=== PATIENT | female | born 1995 | race Caucasian/White ===

== ENCOUNTER 2016-12-15 07:17 | Inpatient (IN) | payer OTHER ==
[2016-12-15 08:27] VITALS: BMI 25.9
[2016-12-15 09:32] LABS: BASOPHIL 0.4 % (0-2.0); EOSINOPHIL 0.9 % (0-4.5); MCH 29.5 pg (25.7-33.7); MEAN PLT VOLUME 9.9 fl (7.5-11.1); NEUTROPHILS 71.8 % (42.8-82.8); PLATELET COUNT 127 K/MM3 (134-434); RDW 12.9 % (11.6-15.6); WHITE BLOOD COUNT 6.8 K/mm3 (4.0-10.0)
[2016-12-15 09:52] LABS: INR 0.98 (0.82-1.09); PROTHROMBIN TIME (PATIENT) 10.8 SEC (9.98-11.88)
[2016-12-15 09:55] LABS: ACTIVATED PTT 22.6 SECONDS (26.9-34.4)
[2016-12-15 10:02] LABS: ANION GAP 11 (8-16); CALCIUM 8.5 mg/dL (8.5-10.1); CO2 22 mmol/L (21-32); CREATININE 0.5 mg/dL (0.55-1.02); GLUCOSE,RANDOM 128 mg/dL (74-106)
[2016-12-15] MEDS ORDERED: DINOPROSTONE 10 MG VAGINAL SUPPOSITORY VG ONE ×2 (10:30→10:40)
--- NOTE | 2016-12-15 10:33 | HP ---
Past Medical History - Admission Chief Complaint: Vaginal discharge History of Present Illness: 21 yo , @ 40.3 weeks gestation, EDC 12/12/16, presents c/o vaginal discharge. She was scheduled for induction of labor due to postdates; she was then admitted to L&D. She denies any contractions pain History Source: Patient Limitations to Obtaining History: No Limitations - Past Medical History ...: 2 ...Para: 0 ...Term: 0 ...: 0 ...Spon : 0 ...Induced : 1 ...Multiple Gestation: 0 ...LMP: 03/08/16 ... Weeks Gestation by Dates: 40.2 ...EDC by Dates: 12/13/16 ...EDC by Sono: 12/13/16 - Past Surgical History Past Surgical History: Yes: None Hx Myomectomy: No Hx Transabdominal Cerclage: No - Smoking History Smoking history: Never smoked Have you smoked in the past 12 months: No Aproximately how many cigarettes per day: 0 - Alcohol/Substance Use Hx Alcohol Use: No - Social History Usual Living Arrangement: Yes: Alone History of Recent Travel: No Home Medications - Allergies Allergies/Adverse Reactions: Allergies Allergy/AdvReac Type Severity Reaction Status Date / Time No Known Allergies Allergy Verified 12/15/16 07:47 - Home Medications Home Medications: Ambulatory Orders Vit No.130/Iron/FA [ Vitamins] 1 each PO DAILY 09/26/16 Review of Systems - Review of Systems Constitutional: reports: No Symptoms Eyes: reports: No Symptoms HENT: reports: No Symptoms Neck: reports: No Symptoms Cardiovascular: reports: No Symptoms Respiratory: reports: No Symptoms Gastrointestinal: reports: No Symptoms Genitourinary: reports: Other (Leakage of fluid) Breasts: reports: No Symptoms Reported Musculoskeletal: reports: No Symptoms Integumentary: reports: No Symptoms Neurological: reports: No Symptoms Endocrine: reports: No Symptoms Hematology/Lymphatic: reports: No Symptoms Psychiatric: reports: No Symptoms Pain Intensity: 0 Physical Exam - Maternity Vital Signs: Vital Signs Temperature 98.6 F 12/15/16 10:00 Pulse Rate 94 H 12/15/16 10:00 Respiratory Rate 20 12/15/16 10:00 Blood Pressure 100/53 12/15/16 10:00 O2 Sat by Pulse Oximetry (%) Constitutional: Yes: Well Nourished Eyes: Yes: Conjunctiva Clear HENT: Yes: Atraumatic Neck: Yes: Supple Cardiovascular: Yes: Regular Rate and Rhythm Lungs: Clear to auscultation - Abdominal Exam/OB Number of Fetuses: Single Presentation: Vertex - Vaginal Exam/OB Vaginal Bleediing: No Speculum Exam: No Dilatation (cm): 0 Effacement (%): 60 Amniotic Membrane Status: Leaking Amniotic Fluid: Yes: Clear Presentation: Vertex/Position Station: -2 - Physical Exam ...Motor Strength: WNL Psychiatric: Yes: Alert, Oriented - Labs Lab Results: CBC, BMP 12/15/16 09:05 12/15/16 09:05 Problem List - Problems (1) Post-dates Code(s): O48.0 - POST-TERM Assessment/Plan Postdates Admit for Cervidil induction Cervidil placed at 10:30 am Re-evaluate in 12 hours or before if indicated
[2016-12-15] MEDS ORDERED: CITRIC ACID/SODIUM CITRATE 30 ML UNIT-DOSE CUP PO ONE (19:25)
--- NOTE | 2016-12-15 20:07 | PN ---
Progress Note (short form) - Note Progress Note: prom since 230 am today, cervidil induction, cx closed 25 vx -3 mr clear efw 8 to 9 lb fhr cat 1, advised c/s, rba discussed
[2016-12-15] MEDS ORDERED: ELECTROLYTE-148 SOLN 500 ML IV SCH (21:00)
[2016-12-15] MEDS ORDERED: ELECTROLYTE-148 SOLN 1,000 ML IV SCH (22:00)
[2016-12-15] MEDS: OXYTOCIN 20 UNITS in 0.9% NS 1,000 ML IV SCH (23:00)
[2016-12-15] MEDS: METHYLERGONOVINE MALEATE 0.2 MG/1 ML AMP IM PRN (23:00)
[2016-12-15] MEDS ORDERED: BENZOCAINE 28 GM HEMORRHOIDAL OINTMENT PR PRN (23:19)
[2016-12-15] MEDS ORDERED: oxyCODONE HCL 5 MG TABLET PO PRN (23:19)
[2016-12-15] MEDS ORDERED: BENZOCAINE 20% 57 GM BOTTLE TP PRN (23:19)
[2016-12-15] MEDS ORDERED: diphenhydrAMINE HCL 25 MG CAPSULE (FP) PO PRN (23:19)
[2016-12-15] MEDS ORDERED: WITCH HAZEL 50% (TUCKS) 40 PAD/JAR PAD TP PRN (23:19)
[2016-12-15] MEDS ORDERED: IBUPROFEN 600 MG TABLET (FP) PO PRN (23:19)
[2016-12-15] MEDS ORDERED: DEXTROSE 5%-LACTATED RINGERS 1,000 ML IV SCH (23:30)
[2016-12-16] MEDS ORDERED: DEXTROSE 5%-WATER - 50 ML IVPB ONE ×2 (01:38→09:44)
[2016-12-16] MEDS ORDERED: ceFAZolin SODIUM 1 GM VIAL ONE ×2 (01:38→09:44)
[2016-12-16] MEDS: CEFAZOLIN 1 GM in DEXTROSE 5%-WATER - 50 ML IVPB SCH ×2 (01:46→09:51)
[2016-12-16] MEDS: METHYLERGONOVINE MALEATE 0.2 MG/1 ML AMP IM PRN (03:03)
[2016-12-16] MEDS: IBUPROFEN 800 MG/8 ML IJ IVPB PRN ×2 (03:10→11:25)
[2016-12-16] MEDS: OXYTOCIN 20 UNITS in 0.9% NS 1,000 ML IV SCH (06:12)
--- NOTE | 2016-12-16 07:20 | PN ---
Progress Note (short form) - Note Progress Note: pod 1 doing well, no excess vaginal bleeding, abdomen soft, no distension, no cva incision dry, clean no calf tenderness plan ambulate, advance diet. cbc , pain management
[2016-12-16 07:27] LABS: BASOPHIL 0.4 % (0-2.0); MCH 29.9 pg (25.7-33.7); MCHC 34.4 g/dl (32.0-36.0); MEAN CELL VOLUME 86.8 fl (80-96); MEAN PLT VOLUME 10.1 fl (7.5-11.1); PLATELET COUNT 119 K/MM3 (134-434); RDW 12.6 % (11.6-15.6); WHITE BLOOD COUNT 9.7 K/mm3 (4.0-10.0)
[2016-12-16] MEDS: PRENATAL VITAMINS W/ FOLIC ACID TABLET (FP) PO SCH (09:51)
[2016-12-16] MEDS: SIMETHICONE 80 MG TAB.CHEW (FP) PO PRN ×2 (09:51→17:27)
[2016-12-16] MEDS: ENOXAPARIN NA (PORCINE) 40 MG/0.4 ML DISP.SYRIN SQ SCH (09:52)
--- NOTE | 2016-12-16 13:42 | PN ---
Progress Note (short form) - Note Progress Note: POD #1 - s/p under spinal anesthesia with duramorph. Pt. doing well, sitting up comfortably in bed with baby. Pt. c/o some pruritis which was relieved with Benadryl. Good pain control. No apparent anesthetic complications noted. Continue current care.
[2016-12-16] MEDS: ACETAMINOPHEN 325 MG TABLET (FP) PO PRN (17:25)
[2016-12-16] MEDS: IBUPROFEN 600 MG TABLET (FP) PO PRN (17:26)
[2016-12-16] MEDS ORDERED: BISACODYL 10 MG SUPP.RECT RC PRN (23:19)
[2016-12-17] MEDS: SIMETHICONE 80 MG TAB.CHEW (FP) PO PRN ×3 (00:16→17:38)
[2016-12-17] MEDS: IBUPROFEN 600 MG TABLET (FP) PO PRN ×3 (00:17→17:38)
[2016-12-17] MEDS: ACETAMINOPHEN 325 MG TABLET (FP) PO PRN ×3 (00:17→17:38)
--- NOTE | 2016-12-17 08:57 | PN ---
Post Progress Note - Subjective Subjective: 21 yo Para 1, status post primary , seen and evaluated. Doing well, no complaints. Post Day: 2 Type of Delivery: Primary C/S Vital Signs: Vital Signs Temperature 97.8 F 12/16/16 21:35 Pulse Rate 73 12/16/16 21:35 Respiratory Rate 20 12/16/16 21:35 Blood Pressure 103/67 12/16/16 21:35 O2 Sat by Pulse Oximetry (%) 100 12/15/16 22:45 Breast Exam: Yes: Soft Uterus: Yes: Fundus Firm Incision: Yes: [place] intact Abdomen/GI: Yes: Abdomen soft, Tolerating PO Lochia: Yes: Rubra Lochia, amount: Small Extremities: Yes: Calves non-tender Perineum: Yes: Intact Activity: Ambulating - Labs Labs: CBC WBC 9.7 K/mm3 (4.0-10.0) D 12/16/16 06:00 RBC 3.65 M/mm3 (3.60-5.2) 12/16/16 06:00 Hgb 10.9 GM/dL (10.7-15.3) 12/16/16 06:00 Hct 31.7 % (32.4-45.2) L 12/16/16 06:00 MCV 86.8 fl (80-96) 12/16/16 06:00 MCH 29.9 pg (25.7-33.7) 12/16/16 06:00 MCHC 34.4 g/dl (32.0-36.0) 12/16/16 06:00 RDW 12.6 % (11.6-15.6) 12/16/16 06:00 Plt Count 119 K/MM3 (134-434) L 12/16/16 06:00 MPV 10.1 fl (7.5-11.1) 12/16/16 06:00 Neutrophils % 77.0 % (42.8-82.8) 12/16/16 06:00 Lymphocytes % 13.5 % (8-40) D 12/16/16 06:00 Monocytes % 9.1 % (3.8-10.2) 12/16/16 06:00 Eosinophils % 0.0 % (0-4.5) D 12/16/16 06:00 Basophils % 0.4 % (0-2.0) 12/16/16 06:00 Problem List - Problems (1) Post-dates Code(s): O48.0 - POST-TERM (2) Status post primary low transverse section Code(s): Z98.891 - HISTORY OF UTERINE SCAR FROM PREVIOUS SURGERY Assessment/Plan Status post primary Stable Continue routine Post op care
[2016-12-17] MEDS: PRENATAL VITAMINS W/ FOLIC ACID TABLET (FP) PO SCH (09:46)
[2016-12-17] MEDS: ENOXAPARIN NA (PORCINE) 40 MG/0.4 ML DISP.SYRIN SQ SCH (09:46)
[2016-12-17] MEDS ORDERED: SENNOSIDES/DOCUSATE COMBO (SENNA PLUS) TABLET (UD) PO PRN (22:00)
[2016-12-18] MEDS: oxyCODONE HCL 5 MG TABLET PO PRN ×2 (00:05→09:38)
[2016-12-18 08:22] VITALS: BP 127/71; PULSE 70; TEMP 98.8
[2016-12-18 08:42] LABS: BASOPHIL 0.8 % (0-2.0); EOSINOPHIL 2.6 % (0-4.5); MCH 29.8 pg (25.7-33.7); MCHC 34.3 g/dl (32.0-36.0); MEAN CELL VOLUME 87.1 fl (80-96); NEUTROPHILS 60.5 % (42.8-82.8); PLATELET COUNT 150 K/MM3 (134-434); WHITE BLOOD COUNT 6.8 K/mm3 (4.0-10.0)
[2016-12-18] MEDS: ACETAMINOPHEN 325 MG TABLET (FP) PO PRN (09:34)
[2016-12-18] MEDS: ENOXAPARIN NA (PORCINE) 40 MG/0.4 ML DISP.SYRIN SQ SCH (09:34)
[2016-12-18] MEDS: SIMETHICONE 80 MG TAB.CHEW (FP) PO PRN (09:34)
[2016-12-18] MEDS: PRENATAL VITAMINS W/ FOLIC ACID TABLET (FP) PO SCH (09:34)
[2016-12-18] MEDS: IBUPROFEN 600 MG TABLET (FP) PO PRN (09:35)
--- NOTE | 2016-12-18 11:17 | DS ---
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: Vital Signs Temperature 98.8 F 12/18/16 08:21 Pulse Rate 70 12/18/16 08:21 Respiratory Rate 20 12/18/16 08:21 Blood Pressure 127/71 12/18/16 08:21 O2 Sat by Pulse Oximetry (%) 99 12/17/16 21:00 Constitutional: Yes: Well Nourished Eyes: Yes: Conjunctiva Clear HENT: Yes: Atraumatic Neck: Yes: Supple Cardiovascular: Yes: Regular Rate and Rhythm Respiratory: Yes: Regular, CTA Bilaterally Gastrointestinal: Yes: Normal Bowel Sounds Pelvis: Yes: WNL External Genitalia: Yes: Normal Vaginal Exam: Yes: Normal Cervix: Yes: Normal Uterus: Yes: Normal ....Post : Yes: Uterus firm Wound/Incision: Yes: Well Approximated. No: Bleeding Neurological: Yes: Alert, Oriented ...Motor Strength: WNL Psychiatric: Yes: Alert, Oriented Labs: CBC, BMP 12/18/16 08:17 12/15/16 09:05 Delivery - Delivery Type of Anesthesia: Spinal Episiotomy/Laceration: None EBL (cc): 500 Delivery, Single - Stages of Labor Date 1st Stage Initiatied: 12/15/16 Time 1st Stage Initiated: 02:00 Date of Delivery: 12/15/16 Time of Delivery: 21:00 Time Placenta Delivered: 21:01 - Condition of Infant Customer Service Correspondence Clerk/Ballet Master/Mistress Present: No Gender: Female Weight: 8 lb 15 oz Position: Right, OT Total Hours ROM (Hrs/Mins): 19h01m - 1 Minute Total Score: 9 5 Minutes Total Score: 9 - [place] Feeding Plan Initial Plan: Exclusive throughout hospitalization Discharge Summary Reason For Visit: INDUCTION OF LABOR Current Active Problems Post-dates (Acute) Status post primary low transverse section (Acute) Procedures: Principal: Primary Low Transverse Hospital Course: Routine Post op care Condition: Good - Instructions Diet, Activity, Other Instructions: return to clinic for quang removal on 12/22/16. call [facility] for appointment. [phone]. Disposition: HOME - Home Medications Comprehensive Discharge Medication List: Ambulatory Orders Vit No.130/Iron/FA [ Vitamins] 1 each PO DAILY 09/26/16
--- NOTE | 2016-12-21 09:53 | OP ---
DATE OF OPERATION: 12/15/2016 PREOPERATIVE DIAGNOSIS: , post-date, premature ruptured membranes, Cervidil induction, failure to dilate, large for gestational age. POSTOPERATIVE DIAGNOSIS: , post-date, premature ruptured membranes, Cervidil induction, failure to dilate, large for gestational age. PROCEDURE: Primary low segment transverse section. SURGEON: Shailesh Bell MD TRACTOR MECHANIC HELPER: JOSE Irene ANESTHESIA: Spinal. ESTIMATED BLOOD LOSS: 500 mL. OPERATION: The patient was taken to the operating room. Under adequate spinal anesthesia, abdomen and perineum were prepped and draped. Pfannenstiel abdominal skin incision was made. Abdominal wall was cut layer by layer, until the peritoneum was exposed and incised. Upon entering the abdominal cavity, lower uterine segment was identified, and uterovesical fold of peritoneum was established, bladder was pushed down. Then, a low transverse uterine incision was made. Incision extended laterally. Amniotic sac was entered. Clear fluid, head delivered, nasopharynx was suctioned, and live baby was delivered without any difficulty. Placenta was delivered manually. Uterine cavity was cleaned of all remaining tissue. Uterine incision was closed in 2 layers, 1st layer with 0 Biosyn continuous suture, the 2nd layer with 0 Biosyn imbricating the 1st layer. Bladder flap was closed with 0 Biosyn continuous suture. Both tubes and ovaries were checked, were normal. No active bleeding was seen. All the lap count, sponge count, instrument count were correct. Then, peritoneum was closed with 0 Biosyn continuous suture, muscles were brought together with interrupted sutures of 0 Biosyn, fascia was closed with 0 Biosyn continuous suture, subcutaneous fat with interrupted suture of 0 Biosyn, and the skin was closed with quang. The patient tolerated the procedure well, left the OR in good condition. [place] [id number]
--- NOTE | 2016-12-23 15:49 | PATH ---
Surgical Pathology Report Patient Name: JORGE L EGAN Med. Rec. 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 Specimen(s) Received PLACENTA Clinical History , 40.2 weeks Microsomia for primary c/section Final Diagnosis PLACENTA, DELIVERY: FOCALLY DISRUPTED THIRD TRIMESTER PLACENTA WITH MILD PREVILLOUS, PERIVILLOUS, AND PRECHORIONIC FIBRIN DEPOSITION, EXTENSIVE CALCIFICATIONS, THREE VESSEL UMBILICAL CORD, AND PLACENTAL MEMBRANES WITH FOCAL HEMORRHAGE. Electronically Signed Froy Alejo M.D. Gross Description The specimen is received fresh, labeled "placenta" and is a 629 gram, 18.5 x 15.0 x 3.5 cm placenta with attached membranes and umbilical cord. The attached membranes are stauffer, translucent with focal opacities and insert marginally. The umbilical cord measures 30 cm in length and averages 1 cm in diameter. The cord inserts eccentrically, 3 cm to the nearest margin. No true knots or strictures are identified. Cut surface of the umbilical cord reveals 3 vessels. The surface is miller-blue with fibrin deposition and appropriate caliber vessels. The maternal surface is red-brown with focal defects. Sectioning reveals red-brown, spongy parenchyma. No focal lesions are identified. Wrapper Hands Sprayer sections are submitted in three cassettes as follows: 1- membrane rolls and umbilical cord; 2-3- full thickness sections of placenta. 12/22/201612/22/2016
== END 2016-12-18 17:00 | disposition home or self-care (01) | DRG 540 ==
LOC: JDEL 07:17 → JLDR 07:53 → J3W 12-16
PROVIDERS: ADMIT Obstetrics & Gynecology; ATTEND Obstetrics & Gynecology
PROC: 10D00Z1 Extraction of Products of Conception, Low, Open Approach (ICD-10-PCS; principal; 2016-12-15)
PROC: 3E0P7GC Introduction of Other Therapeutic Substance into Female Reproductive, Via Natural or Artificial Opening (ICD-10-PCS; 2016-12-15)
DX: O48.0 Post-term pregnancy (principal); O42.92 Full-term premature rupture of membranes, unspecified as to length of time between rupture and onset of labor; O62.0 Primary inadequate contractions; O36.63X0 Maternal care for excessive fetal growth, third trimester, not applicable or unspecified; Z3A.40 40 weeks gestation of pregnancy; Z37.0 Single live birth
CPT/HCPCS: 36415; 80048; 85025; 85610; 85730; 86593; 86850; 86900; 86901; 88307-TC